=== PATIENT | female | born 1975 | race Caucasian/White ===

== ENCOUNTER → 2019-02-08 | Outpatient (CLI) | payer MEDICAID, SELFPAY ==
[2019-01-18 14:35] VITALS: BMI 40.4
--- NOTE | 2019-02-08 12:47 | ECHOCS_ITS ---
Procedure This was a 2D Doppler, Color Flow transthoracic echocardiogram. The study was technically difficult. Contrast injection was performed. Exam performed in department. Left Ventricle Moderately dilated left ventricle. The estimated ejection fraction is 50-55 %. Stage 1 diastolic dysfunction. There is borderline global hypokinesis of the left ventricle. Right Ventricle Normal size and thickness. Normal systolic function. Atria Normal left atrium. Normal right atrium. Normal atrial septum. Mitral Valve The mitral valve is structurally normal. No prolapse or stenosis seen. Tricuspid Valve Normal tricuspid valve. Unable to estimate RV systolic pressure due to inadequate jet, pulmonary artery pressure probably normal. Aortic Valve Normal aortic valve. Trisinus/trileaflet aortic valve. Pulmonic Valve Normal pulmonic valve. Great Vessels Normal aortic root. Normal arch. Normal inferior vena cava. Inferior vena cava collapse with sniff. Pericardium/Pleural No pericardial effusion. Medication 22 gauge I.V. with prn adaptor inserted into right arm. Diluted definity 4ml given slow IV push to enhance endocardial definition. MMode/2D Measurements & Calculations LVIDd: 5.8 cm IVSd: 1.0 cm Ao root diam: 3.3 cm LVIDs: 3.8 cm LVPWd: 0.98 cm RVDd: 3.2 cm FS: 34.3 % LAV(MOD-bp): 43.7 ml EDV(MOD-sp4): 173.8 ml EDV(MOD-sp2): 128.9 ml LAV(MOD-bp) Indexed: 18.9 ml/m2 ESV(MOD-sp4): 82.2 ml EF(MOD-sp2): 59.6 % LAV(MOD-sp2): 53.5 ml EF(MOD-sp4): 52.7 % LAV(MOD-sp4): 35.7 ml SV(MOD-sp4): 91.6 ml SV(MOD-sp2): 76.9 ml LA A4 area: 15.1 cm2 LA dimension(2D): 3.9 cm RA A4 area: 11.9 cm2 Time Measurements MV dec time: 0.24 sec Doppler Measurements & Calculations MV E max douglas: 50.7 cm/sec Lat Peak E' Douglas: 6.6 cm/sec Med Peak E' Douglas: 5.2 cm/sec MV A max douglas: 74.4 cm/sec E/E' lat: 7.6 E/E' med: 9.7 MV E/A: 0.68 Ao V2 max: 146.2 cm/sec LV V1 max: 96.1 cm/sec Ao max P.6 mmHg LV V1 max P.7 mmHg Interpretation Summary Moderately dilated left ventricle. The estimated ejection fraction is 50-55 %. Stage 1 diastolic dysfunction. There is borderline global hypokinesis of the left ventricle. Unable to estimate RV systolic pressure due to inadequate jet, pulmonary artery pressure probably normal. Compared to echo report dated 03/23/2017, LV Function appears about the same. The study was technically difficult. Contrast injection was performed. Ordering Physician: Ozzie Dee Referring Physician: DAISHA FOWLER Performed By: Phyllis Chin, AUBREY, RVT
== END | disposition home or self-care (01) ==
LOC: CVS 12:47
PROVIDERS: Family Provider Internal Medicine; PCP Internal Medicine; Referring Provider Internal Medicine Cardiovascular Disease; Visit Provider Internal Medicine Cardiovascular Disease
DX: I49.3 Ventricular premature depolarization (principal); I43 Cardiomyopathy in diseases classified elsewhere; O90.3 Peripartum cardiomyopathy
CPT/HCPCS: 93306; Q9957; A4216; C8929

== ENCOUNTER → 2019-02-22 20:00 | Outpatient (CLI) | payer MEDICAID, SELFPAY ==
[2019-01-18 14:35] VITALS: BMI 40.4
== END ==
PROVIDERS: Family Provider Internal Medicine; PCP Internal Medicine; Referring Provider Internal Medicine Cardiovascular Disease; Visit Provider Internal Medicine Cardiovascular Disease
DX: G47.20 Circadian rhythm sleep disorder, unspecified type (principal); R06.83 Snoring; I49.3 Ventricular premature depolarization; R00.2 Palpitations; G47.10 Hypersomnia, unspecified
CPT/HCPCS: 95810